=== PATIENT | male | born 1965 | race Caucasian/White ===

== ENCOUNTER → 2021-03-23 | Outpatient (CLI) | payer OTHER ==
[~2021-03-23] MED LIST: HUMALOG100 UNIT/1 SUBQ; LANTUS SUBQ; METFORMIN HCL1000 MG PO
[2021-03-23 11:53] LABS: HEMATOCRIT 45.2 % (42.0-52.0); HEMOGLOBIN 15.1 gm/dL (14.0-18.0); MCH 32.8 pg (26.0-34.0); MCHC 33.4 g/dL (28.0-37.0); MCV 98.1 fL (80.0-100.0); RBC 4.61 mil/uL (4.50-6.00); RDW 12.9 % (10.5-14.5); WBC 7.7 thou/uL (4.0-11.0)
[2021-03-23 11:58] LABS: URINE BILIRUBIN NEGATIVE (Negative); URINE BLOOD NEGATIVE (Negative); URINE CLARITY CLEAR; URINE COLOR YELLOW; URINE GLUCOSE-RANDOM* 3+ (Negative); URINE KETONES NEGATIVE (Negative); URINE LEUKOCYTES-REFLEX NEGATIVE (Negative); URINE NITRITE-REFLEX NEGATIVE (Negative); URINE PROTEIN (DIPSTICK) NEGATIVE (Negative); URINE SPECIFIC GRAVITY 1.025 (1.005-1.035); URINE UROBILINOGEN 0.2 E.U./dl (0.2-1.0)
[2021-03-23 12:02] LABS: ALBUMIN 3.7 g/dL (3.4-5.0); CALCIUM 9.2 mg/dL (8.5-10.1); CREATININE 1.1 mg/dL (0.7-1.3); POTASSIUM 4.4 mmol/L (3.5-5.1)
[2021-03-23 12:04] LABS: PROTIME 10.9 Seconds (10.5-12.1)
--- NOTE | 2021-03-23 14:55 | EKG ---
[address] [address] ELECTROCARDIOGRAM REPORT Name: KYRA WONG Room #: SHERRI Ellison#: [id number] Admission: 03/23/21 Attend Phys: Holger Pickering MD Discharge: Date of : 63 Report #: [id number] [facility] Test Date: 2021-03-23 Test Time: 11:23:03 Pat Name: KYRA WONG Department: Room: Gender: M Lodge Attendant: AVANI OLIVER : 1965 Requested By: Holger Pickering Order Number: [id number] MD: Ramiro Jacinto Measurements Intervals [place] Rate: 99 P: 64 OK: 120 QRS: 54 QRSD: 97 T: 51 QT: 337 QTc: 433 Interpretive Statements Sinus rhythm No previous ECG available for comparison Electronically Signed On 03-23-2021 14:55:05 CDT by Ramiro Jacinto [email or web address] <ELECTRONICALLY SIGNED> By: Ramiro Jacinto MD, [facility] 03/23/21 1455 [id number] Ramiro Jacinto MD, FACC /EPI
[2021-03-24 00:06] LABS: GLYCOHEMOGLOBIN (HGB A1C) 8.6 % (4.8-5.6)
== END ==
LOC: PAC 10:44
PROVIDERS: ATTEND Orthopaedic Surgery
DX: Z01.818 Encounter for other preprocedural examination (principal); M17.11 Unilateral primary osteoarthritis, right knee

== ENCOUNTER 2021-04-02 06:17 | Observation (INO) | payer OTHER ==
[~2021-04-02] VITALS: Ht 167.6 cm; Wt 113.9 kg
[2021-04-02 07:20] VITALS: BP 134/84
[2021-04-02 10:49] VITALS: BP 114/72
--- NOTE | 2021-04-02 15:58 | NUR ---
ARRIVED TO UNIT VIA BED. A/O X 4. MAURITANIAN SPEAKING. NURSE CALLED SINK CUTTER LINE TO HELP SPEAK WITH THE PATIENT. 2 L O2 VIA NASAL CANNULA. RIGHT TOTAL KNEE WRAPPED WITH TASHA WRAP, HEMOVAC TO RIGHT KNEE DARK BLOOD NOTED, AC HS ACCU CHECKS. AT BEDSIDE AND DOESNT SPEAK ROMANSH WELL. LR INFUSING @ 100 VIA RIGHT FOREARM IV. PAIN 10/10. NORCO GIVEN. VERY SLEEPY. TOLERATED CARB CONTROL DIET WELL.
[2021-04-02 22:15] VITALS: BP 122/99
--- NOTE | 2021-04-03 05:07 | NUR ---
RECEIVED CARE OF THIS PATIENT AT 1900. PATIENT ALERT AND ORIENTED X4. C/O PAIN, MED GIVEN. PATIENT SPEAKS LITTLE IRANIAN. MAKES WANTS AND NEEDS KNOWN THROUGH GESTERS AND TRANSLATIONS VIA PHONE. HAS TEDS AND SCD'S ON. HEMAVAC TO R KNEE. ACCUCHECK WAS 182, NO SS COVERAGE. SLEPT OFF AND ON DURING NIGHT.
[2021-04-03 08:09] LABS: ABSOLUTE NEUTROPHILS 9.3 thou/uL (1.4-8.2); BASOPHILS 0.4 % (0.0-2.0); EOSINOPHILS 0.2 % (0.0-3.0); HEMATOCRIT 36.8 % (42.0-52.0); HEMOGLOBIN 12.3 gm/dL (14.0-18.0); LYMPHOCYTES 12.9 % (24.0-44.0); MCH 32.8 pg (26.0-34.0); MCHC 33.4 g/dL (28.0-37.0); MCV 98.2 fL (80.0-100.0); PLATELET COUNT 220 thou/uL (150-400); POLYS 77.5 % (36.0-66.0); RBC 3.74 mil/uL (4.50-6.00); RDW 13.1 % (10.5-14.5); WBC 12.1 thou/uL (4.0-11.0)
[2021-04-03 08:41] VITALS: BP 137/84
[2021-04-03 08:49] LABS: CALCIUM 8.8 mg/dL (8.5-10.1); CREATININE 0.8 mg/dL (0.7-1.3); MAGNESIUM 1.6 mg/dL (1.8-2.4)
--- NOTE | 2021-04-03 12:07 | O ---
[facility] [place] [address] OPERATIVE REPORT Name: KYRA WONG Room #: 448-P [facility] MEli#: [id number] Admission: 04/02/21 Attend Phys: Holger Pickering MD Discharge: Date of : 63 Report #: [id number] THIS REPORT FOR: cc: FAM - No family physician/PCP FAM - No family physician/PCP Holger Pickering MD ~ DATE OF SERVICE: 04/02/2021 PREOPERATIVE DIAGNOSIS: Degenerative arthritis, right knee. POSTOPERATIVE DIAGNOSIS: Degenerative arthritis, right knee. PROCEDURE: Right total knee arthroplasty. SURGEON: Holger Pickering MD INDICATIONS: This 55-year-old gentleman complains of severe progressive bilateral knee pain. Clinical exam and x-rays reveal moderate degenerative change in both knees. We have discussed conservative measures, but he feels his symptoms are too severe to continue with that approach. He has decided to go ahead with total knee arthroplasty beginning on the right side. DESCRIPTION OF PROCEDURE: The patient was taken to the operating room where he was placed under general anesthesia. A femoral nerve block was also applied. The right knee and leg were meticulously prepped and draped. Prophylactic intravenous antibiotics were administered. Thigh tourniquet was applied and inflated to 300 mmHg. An anterior longitudinal skin incision was made and carried through the medial retinaculum. The patella was reflected laterally. There was an area of deep cartilage damage on the medial femoral condyle and less severe cartilage damage on the patella and the lateral compartment. The Leach and Nephew knee system was utilized. Intramedullary guides were used on both the femur and the tibia. The femur was cut in 5 degrees of valgus and the tibia cut perpendicular to the long axis of the bone. The femur seemed best suited for a size 5 femoral component. The tibia was also best suited for a size 5 tibial component. A trial reduction was performed and a 9 mm polyethylene insert fit nicely. This resulted in full knee extension, good flexion and good stability. The patellar surface was resected and a 35 mm patellar button seemed to fit nicely. Appropriate anchor holes were created. The trial components were removed. The intramedullary canal was blocked with bone block on both the femoral and tibial sides. The surfaces were thoroughly irrigated and dried. The permanent components were brought up on to the field. The Leach and Nephew size 5 right tibial baseplate was inserted in appropriate alignment using methyl methacrylate cement. Excess cement was removed around its margin. A 9 mm polyethylene Karen II cruciate retaining polyethylene insert was inserted. This seated nicely and appeared to be secure. A size [address] [address] OPERATIVE REPORT Name: KYRA WONG Room #: 448-P [facility] Terra#: [id number] Admission: 04/02/21 Attend Phys: Holger Pickering MD Discharge: Date of : 63 Report #: [id number] cruciate retaining femoral component was then impacted on the distal femur. It also seated nicely and appeared to be secure. The 36 mm polyethylene insert was then inserted with appropriate anchor holes and cement. It also seated nicely and appeared to be secure. Once the cement was firm, alignment, range of motion and stability were assessed and felt to be satisfactory. The patella tracks nicely and seems to be stable. A single Hemovac was left in the wound exiting through a separate stab incision. The fascia was closed with multiple #1 Vicryl sutures. The subcutaneous tissues were closed with 0 Monocryl. The skin was closed with skin nicolas. A sterile dressing was applied. The patient was awakened and returned to recovery room in good condition. <ELECTRONICALLY SIGNED> By: Holger Pickering MD 04/03/21 1207 [id number] Holger Pickering MD /nt
[2021-04-03] MEDS ORDERED: COLACE100 MG PO (16:25)
[2021-04-03] MEDS ORDERED: MIRALAX17 GM PO (16:25)
[2021-04-03 17:03] VITALS: BP 127/91
--- NOTE | 2021-04-03 19:18 | NUR ---
ASSUMED PT CARE AROUND 729. PT A X O X 4. ON RA, 1 X PERSON ASST . IV RT/FA/SL. HEMOVAC REMOVED. NO DRAINAGE FROM HEMOVAC. LEROY GIMENEZ. ICEPACK, TEDS/SCDS. PAIN PARTIALLY CONTROLLED BY PAIN MEDS. NON GREEK SPEAKER/ SPRING ASSEMBLER SERVICE AVAILABLE. IN THE ROOM. PENDING DC. SHIFT REPORT GIVEN TO MECHANICAL SOUND TECHNICIAN.
[2021-04-03 19:45] VITALS: BP 143/87
--- NOTE | 2021-04-04 01:08 | NUR ---
ASSUMED CARE OF PT AT SHIFT CHANGE. PT IS AOX4 KOKI LETS NEEDS BE KNOWN. PT IS [place] SPEAKING BUT SPEAKS SOME BENGALI. [employer] WHEEL WORKER SERVICES USED WHEN NEEDED. FALL PRECAUTION IN PLACE. SURGICAL DRESSING IS C/D/I. ASSESSMENT CHARTED. PT REPORTS R KNEE PAIN; PRNS PROVIDED WITH SOME SUCCESS. PT DENIED NAUSEA OR SOA. PT WAS ABLE TO GET COMFORTABLE AND SLEEP PART OF THE SHIFT. VSS AND NO S/S OF ACUTE DISTRESS. WILL CONTINUE TO MONITOR FOR CHAGES.
[2021-04-04 04:57] VITALS: BP 140/89
[2021-04-04 06:47] LABS: MCH 33.4 pg (26.0-34.0); MCHC 34.3 g/dL (28.0-37.0); MCV 97.3 fL (80.0-100.0); RBC 3.6 mil/uL (4.50-6.00); RDW 12.9 % (10.5-14.5); WBC 10.6 thou/uL (4.0-11.0)
[2021-04-04 08:40] VITALS: BP 141/87
[2021-04-04 10:43] VITALS: BP 141/87
--- NOTE | 2021-04-04 11:00 | NUR ---
ASSUMED PT CARE THIS AM. PT IS ALERT & ORIENTED X4. PT REMOVED IV ON RFA. PT IS UP WITH ASSIST X1 WITH WALKER AND GAITBELT. PT WAS WORKING WITH PHYSICAL THERAPY THIS AM. PER PT OK FOR DC. PT HAS BILATERAL [facility], SHANIKA DRESSING, SCD, ICE PACK. PT IS ACCUCHECK ACHS. PT C/O OF PAIN AND GIVEN PAIN MEDICATION PER PT REQUEST. PT IS GREEK SPEAKER. AWAITING FOR WALKER TO BE DELIVER IN THE ROOM. PT AT THE BEDSIDE. EDUCATED AND INFORMED PT ABOUT DC ORDERS. PT SIGNED DC FORM. WILL CONTINUE TO MONITOR PT. FOLLOW POC.
--- NOTE | 2021-04-04 14:56 | NUR ---
PT IS PRIMARILY PORTUGUESE SPEAKING. PTS SPEAKS SOME GREEK. PT IT S/P RIGHT KNEE. PT LIVES WITH HIS . PT IS WORKING WITH THERAPIES AND IS NEEDING A WALKER FOR HOME. PT HAS NO PREFERENCE OF DME COMPANY. [employer] IS OUT OF NETWORK. [facility] REACHED OUT TO [facility] [place] AND BHUPENDRA WAS ABLE TO DELIVER A WALKER TO PATIENT. PT IS BEING DISCHARGED HOME TODAY WITH NO NEEDS.
--- NOTE | 2021-04-05 07:43 | D ---
[facility] [place] [address] DISCHARGE SUMMARY Name: KYRA WONG Room #: 448-P [facility] Charla Ellison#: [id number] Admission: 04/02/21 Attend Phys: Holger Pickering MD Discharge: 04/04/21 Date of : 63 Report #: [id number] THIS REPORT FOR: cc: FAM - No family physician/PCP FAM - No family physician/PCP Holger Pickering MD ~ DATE OF SERVICE: 04/04/2021 FINAL DIAGNOSES: 1. End-stage degenerative arthritis, right knee. 2. Diabetes. 3. Hypertension. OPERATIONS AND PROCEDURES: Right total knee arthroplasty. 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 Clinical and radiographic findings demonstrate moderate to moderately severe degenerative arthritis. He has failed to see improvement with conservative treatment and has elected to go ahead with right total knee arthroplasty. HOSPITAL COURSE: The patient was admitted and taken to the operating room on 04/02/2021. He underwent right total knee replacement, which he tolerated generally well. Postoperatively, he had moderate discomfort, but this was managed first with IV analgesics and then oral analgesics. He was started on anticoagulation regimen. He was placed back on a regular diabetic diet. His blood sugars have remained stable. The dressing has remained dry. He has started with physical therapy and making excellent progress. He now seems safe and independent with ambulation. He is anxious for hospital discharge and plans moderate activity at home with family assistance. We will plan to see him back in the office in 1 week for followup and again in 2 weeks for suture removal. DISCHARGE MEDICATIONS: Include methocarbamol 750 mg t.i.d. p.r.n., Xarelto 10 mg daily, hydrocodone 10/325 one q.4-6 hours p.r.n. for pain, Protonix 40 mg daily, Lantus insulin 10 units b.i.d., metformin 1000 mg b.i.d. <ELECTRONICALLY SIGNED> By: Holger Pickering MD 04/05/21 0743 [id number] 0834 Holger Pickering MD /nt
== END 2021-04-04 13:29 | disposition home or self-care (01) ==
LOC: PRE → OR 06:17 → TBA 06:17 → PRE 09:39 → 4S 10:47 → OR 10:47 → 4S 10:48 → OR 10:48 → PRE 11:21 → EDSTATUS 16:49 → OR 16:52 → 4S 04-04 13:29
PROVIDERS: Nurse Practitioner; ADMIT Orthopaedic Surgery; ATTEND Orthopaedic Surgery
DX: M17.11 Unilateral primary osteoarthritis, right knee (principal); E11.9 Type 2 diabetes mellitus without complications; I10 Essential (primary) hypertension; Z79.899 Other long term (current) drug therapy
CPT/HCPCS: 50010; 50101; 50415; 50954; 51130; 51225; 51412; 56525; 57095; 57103; 57104; 58449; 62110; 62900; 64043; 70005